=== PATIENT | male | born 1965 | race Caucasian/White ===

== ENCOUNTER → 2017-02-08 10:12 | Outpatient (CLI) | payer OTHER | END | disposition home or self-care (01) | LOC: D.US 10:12 | DX: I10 Essential (primary) hypertension (principal) ==

== ENCOUNTER → 2018-08-22 08:35 | Outpatient (CLI) | payer OTHER ==
--- NOTE | 2018-08-29 14:26 | EC ---
PATIENT:MALIK BETTENCOURT DATE OF SERVICE: 08/22/18 SEX: M MEDICAL RECORD: [id number] DATE OF : 63 [facility] AGE OF PATIENT: 52 ADMISSION DATE: 08/22/18 REFERRING PHYSICIAN: INTERPRETING PHYSICIAN: MALIK LINDO MD ECHOCARDIOGRAM REPORT ECHO CHARGES 4 ECHO COMPLETE Date: 08/22/18 CLINICAL DIAGNOSIS: DOWLING/FATIGUE/HTN ECHOCARDIOGRAPHIC MEASUREMENTS (adult normal given) AC root (d.<3.7cm) 3.6 cm LV Septum d (<1.2 cm> 1.7 cm Valve Excursion 2.1 cm LV Septum (systole) 2.6 cm Left Atria (s.<4.0cm> 3.6 cm LVPW d(<1.2cm) 1.6 cm RV (d.<2.3cm) 3.6 cm LVPW (sytole) 1.9 cm LV diastole(<5.6CM) 4.9 cm MV E-F(>70mm/sec) cm LV systole 2.4 cm LVOT Diameter 2.1 cm MV exc.(>10mm) cm Est.ejection fraction (50-75%) % DOPPLER: LVIT cm/sec A 48.0 cm/sec E 85.0 cm/sec LA cm/sec RVSP 31.0 mmHg LVOT 121 cm/sec AOP1/2T m/s Asc. Ao 124 cm/sec RVOT 75.0 cm/sec RA cm/sec PA 138 cm/sec AV Gradient Peak 6.2 mmHg AV Mean 3.1 mmHg AV Area 3.5 cm MV Gradient Peak 3.4 mmHg MV Mean 1.2 mmHg MV Area cm COMMENTS: OP - HC Recruiting Intern: Brisa KINNEY SANAZ Human Resources Benefits Coordinator: 3 Dr. Clemons TAPE# PACS Pericardial Effusion N DATE OF SERVICE: 08/22/2018 Adequate 2-D, color-flow and spectral Doppler, and M-mode. LVH is present. LV internal dimensions are normal. Wall motion is normal. EF is greater than 55%. Aortic valve is tricuspid. No evidence of stenosis by Doppler interrogation. Left atrium is normal at 3.6 cm. Mitral valve shows no prolapse. Mild MR. Right-sided chambers are grossly normal. Mild TR. TRANSINT:[id number] Voice Confirmation ID: [id number] DOCUMENT ID: [id number] ECHOCARDIOGRAM REPORT [id number] MALIK BETTENCOURT GREGORY A MD at 1426 CC: [id number] DICTATION DATE: 08/23/18 1259 JOB SERVICE CONSULTANT: 08/23/18 1409 DEP CLI 08/22/18 [place] [id number] [place] [id number]
== END | disposition home or self-care (01) ==
LOC: D.HCCARDIO 08:35
PROVIDERS: ATTEND Internal Medicine Interventional Cardiology
DX: I01.8 Other acute rheumatic heart disease (principal)

== ENCOUNTER → 2019-09-04 08:42 | Outpatient (CLI) | payer OTHER ==
--- NOTE | 2019-09-07 08:58 | EC ---
PATIENT:MALIK BETTENCOURT DATE OF SERVICE: 09/04/19 SEX: M MEDICAL RECORD: [id number] DATE OF : 63 LOCATION:[facility] AGE OF PATIENT: 53 ADMISSION DATE: 09/04/19 REFERRING PHYSICIAN: INTERPRETING PHYSICIAN: MALIK LINDO MD ECHOCARDIOGRAM REPORT ECHO CHARGES 4 ECHO COMPLETE Date: 09/04/19 CLINICAL DIAGNOSIS: HTN HX MR/TR/LVH ECHOCARDIOGRAPHIC MEASUREMENTS (adult normal given) AC root (d.<3.7cm) 3.7 cm LV Septum d (<1.2 cm> 1.6 cm Valve Excursion 2.0 cm LV Septum (systole) 2.1 cm Left Atria (s.<4.0cm> 3.4 cm LVPW d(<1.2cm) 1.7 cm RV (d.<2.3cm) 5.2 cm LVPW (sytole) 1.9 cm LV diastole(<5.6CM) 4.6 cm MV E-F(>70mm/sec) cm LV systole 2.9 cm LVOT Diameter 2.3 cm MV exc.(>10mm) 2.3 cm Est.ejection fraction (50-75%) % DOPPLER: LVIT cm/sec A 87.0 cm/sec E 72.0 cm/sec LA cm/sec RVSP 20 mmHg LVOT 94 cm/sec AOP1/2T m/s Asc. Ao 124 cm/sec RVOT 71 cm/sec RA cm/sec PA 131 cm/sec AV Gradient Peak 6.14 mmHg AV Mean 3.53 mmHg AV Area 2.9 cm MV Gradient Peak 2.80 mmHg MV Mean 1.50 mmHg MV Area cm COMMENTS: Pain Management Physician: 2 [place] It Field Technician: 3 Dr. Clemons TAPE# PAC Pericardial Effusion N DATE OF SERVICE: Adequate 2D, color flow imaging, spectral Doppler, and M-Mode LVH is present. LV internal dimensions are normal. Wall motion is normal. EF is greater than or equal to 55%. Aortic valve is tricuspid. No evidence of stenosis by Doppler interrogation. Left atrium is normal. Mitral valve shows no prolapse. Trace MR. Right-sided chambers are grossly normal. Trace TR. TRANSINT:[id number] Voice Confirmation ID: [id number] DOCUMENT ID: [id number] ECHOCARDIOGRAM REPORT [id number] CANO GREGORY A MD at 0858 CC: [id number] DICTATION DATE: 09/05/19 1330 [employer] RESOURCE TEACHER: 09/05/19 1456 DEP CLI 09/04/19 [place] [id number] [place] [address]
== END | disposition home or self-care (01) ==
LOC: D.HCCECHO 08:42
PROVIDERS: ATTEND Internal Medicine Interventional Cardiology
DX: I10 Essential (primary) hypertension (principal)

== ENCOUNTER → 2020-09-15 08:08 | Outpatient (CLI) | payer BC | END | disposition home or self-care (01) | LOC: D.HCCECHO 08:08 | PROVIDERS: ATTEND Internal Medicine Interventional Cardiology | DX: I10 Essential (primary) hypertension (principal) ==